=== PATIENT | male | born 1960 | race Caucasian/White ===

== ENCOUNTER 2019-05-11 18:43 | Emergency (ER) | payer OTHER ==
[~2019-05-11] VITALS: Ht 190.5 cm; Wt 108.4 kg
[2019-05-11 18:44] VITALS: BP 165/89
--- NOTE | 2019-05-11 20:20 | REPVR ---
EXAM: US Duplex Left Lower Extremity Veins, Limited EXAM DATE/TIME: 05/11/2019 7:10 PM CLINICAL HISTORY: 59 years old, male; Pain; Leg, lower; Left; Additional info: Leg oain swelling/ HX dvt TECHNIQUE: Imaging protocol: Real-time Duplex ultrasound of the Left Lower Extremity with 2-D baires scale, color Doppler flow and spectral waveform analysis with image documentation. Limited exam focused on the left lower extremity veins. COMPARISON: No relevant prior studies available. FINDINGS: Left deep veins: Nonocclusive Clot is noted within the tibioperoneal trunk. The vein does not fully compress. The common femoral, femoral, proximal profunda femoral and popliteal veins are patent without thrombus. Normal Doppler waveforms. Normal compressibility and/or augmentation response. Left superficial veins: Unremarkable. Saphenofemoral junction is patent without thrombus. Soft tissues: Unremarkable. IMPRESSION: Infrapopliteal nonocclusive thrombosis in the tibioperoneal trunk. No deep vein thrombosis in the femoropopliteal system Electronically signed by: Reyna Yung On 05/11/2019 20:20:35 PM
[2019-05-11] MEDS ORDERED: RIVAROXABAN 15 MG TAB (XARELTO) PO ONE (20:30)
[2019-05-11] MEDS ORDERED: XARE15TA PO (20:32)
== END 2019-05-11 21:07 | disposition home or self-care (01) ==
LOC: M ED 18:43
DX: I82.402 Acute embolism and thrombosis of unspecified deep veins of left lower extremity (principal)